=== PATIENT | female | born 2000 | race Caucasian/White ===

== ENCOUNTER 2023-12-14 20:02 | Emergency (ER) | payer OTHER, SELFPAY ==
[2023-12-14 20:34] VITALS: BP 145/81; PULSE 94; RESP 15; TEMP 36.6; O2SAT 97
[2023-12-14 21:18] LABS: Basophils Absolute Auto 0.1 K/mm3 (0.0-0.1); Basophils Percent Auto 0.3 % (0.2-1.2); Eosinophils Absolute Auto 0.3 K/mm3 (0-0.3); Eosinophils Percent Auto 2.3 % (0-4.4); Hematocrit 43.5 % (37.0-47.0); Hemoglobin 14.3 g/dL (12.0-15.0); Immature Granulocyte Absolute 0.08 K/mm3 (0.00-0.031); Immature Granulocyte Percent A 0.5 % (0-0.5); Lymphocytes Absolute Auto 4.23 K/mm3 (0.9-3.2); Lymphocytes Percent Auto 28.4 % (18.3-44.2); Mean Corpuscular HGB Conc 32.9 g/dl (32-36); Mean Corpuscular Hemoglobin 29.4 pg (26-34); Mean Corpuscular Volume 89.3 fl (80-100); Mean Platelet Volume 10.1 fl (7.4-10.4); Monocytes Absolute Auto 1.2 K/mm3 (0.1-0.6); Monocytes Percent Auto 8.1 % (2.6-8.5); Neutrophils Percent Auto 60.4 % (45.5-73.1); Platelet Count Result 354 k/mm3 (150-375); Red Blood Count 4.87 M/mm3 (4.2-5.4); Red Cell Distribution Width 13.2 % (11.5-14.5); White Blood Count 14.9 K/mm3 (4.5-10.0)
[2023-12-14 21:27] LABS: Alanine Aminotransferase 18 U/L (6-35); Albumin Level 4.5 g/dL (3.5-5.1); Alkaline Phosphatase 67 U/L (38-126); Anion Gap 10 mmol/L (8-16); Aspartate Amino Transferase 22 U/L (14-36); Bilirubin,Total 0.5 mg/dL (0.2-1.3); Blood Urea Nitrogen 7 mg/dL (7-17); Calcium 9.8 mg/dL (8.4-10.2); Carbon Dioxide 20 mmol/L (22-30); Chloride 109 mmol/L (98-107); Estimated CRCL calculation 146 ml/min; Estimated Glomerular Filt Rate > 60; Glucose 93 mg/dL (65-110); Potassium 3.4 mmol/L (3.4-5.0); Sodium 139 mmol/L (137-145)
[2023-12-15 00:35] VITALS: BP 115/71; PULSE 81; RESP 15; O2SAT 100
[2023-12-15] MEDS: SODIUM CHLORIDE 0.9% IV 1,000 ML 999 ML IV CONT (00:54)
[2023-12-15] MEDS: METOCLOPRAMIDE HCL INJ 10 MG/2 ML VIAL IV PUSH (00:55)
[2023-12-15] MEDS: diphenhydrAMINE HCl INJ 50 MG/ML VIAL IV PUSH (00:55)
--- NOTE | 2023-12-15 00:57 | ED.GENADULT ---
HPI - General Adult General Chief complaint: Headache Stated complaint: headache, dizzy, blurred vision. 8 weeks Time Seen by Provider: 12/15/23 00:22 History of Present Illness HPI narrative: Patient is a 23-year-old female who presents emergency department with chief complaint of headache dizziness blurred vision and had tingling on the tips of her fingers. Patient states around 230 this afternoon she had an episode of headache. Patient reports that her head has been aching reports that she had some blurry vision at that time and reports that tips of her fingers on both hands were tingly. The patient states she had no weakness in her arms or legs denies syncope reports that she felt somewhat lightheaded with this. The patient does try to drink water caffeine and did not have any improvement. The patient reports that she called her OB and they told her that she probably should be evaluated. Related Data Allergies Allergy/AdvReac Type Severity Reaction Status Date / Time amoxicillin Allergy Mild Hives Unverified 12/15/23 00:54 Review of Systems Review of Systems: A 10 system review of systems was completed on the patient and is negative except for what is stated in the HPI. Nursing and ancillary documentation was reviewed. Exam Narrative: GENERAL: Well-appearing, well-nourished, and in no acute distress. HEAD: Normocephalic, atraumatic. EYES: PERRLA and EOMI. ENT: Nares clear, no rhinorrhea or epistaxis. Mucous membranes moist. NECK: Supple. CHEST: Clear to auscultation. No respiratory distress. HEART: Regular rate and rhythm. No murmur heard. Normal peripheral pulses. ABDOMEN: Soft, nontender, nondistended, normal active bowel sounds. EXTREMITIES: Normal range of motion. No edema. SKIN: Warm, dry, no rash. NEURO: No focal deficits. Alert and oriented x3. PSYCH: Normal mood and affect. Course Vital Signs Vital signs: Vital Signs Temperature 36.6 C 12/14/23 20:34 Pulse Rate 94 12/14/23 20:34 Respiratory Rate 15 12/14/23 20:34 Blood Pressure 145/81 H 12/14/23 20:34 Pulse Oximetry 97 12/14/23 20:34 Temperature 36.6 C 12/14/23 20:34 Pulse Rate 94 12/14/23 20:34 Respiratory Rate 15 12/14/23 20:34 Blood Pressure 145/81 H 12/14/23 20:34 Pulse Oximetry 97 12/14/23 20:34 Medical Decision Making MDM Narrative Medical decision making narrative: Differential diagnosis includes migraine headache, viral syndrome, dehydration Laboratory studies were obtained the patient showed white count 14.9 electrolytes showed no acute abnormality urinalysis showed 2+ ketones COVID flu and RSV were negative The patient had no signs of meningitis Patient was treated with antiemetics fluids and Benadryl the patient is feeling much better at this time Patient be discharged home to follow-up with her OBGYN Vital Signs Vital Signs: Vital Signs Temperature 36.6 C 12/14/23 20:34 Pulse Rate 94 12/14/23 20:34 Respiratory Rate 15 12/14/23 20:34 Blood Pressure 145/81 H 12/14/23 20:34 Pulse Oximetry 97 12/14/23 20:34 Temperature 36.6 C 12/14/23 20:34 Pulse Rate 94 12/14/23 20:34 Respiratory Rate 15 12/14/23 20:34 Blood Pressure 145/81 H 12/14/23 20:34 Pulse Oximetry 97 12/14/23 20:34 Lab Data 12/14/23 21:05 12/14/23 21:05 Labs: Lab Results 12/14/23 12/15/23 12/15/23 Range/Units 21:05 00:59 01:00 WBC 14.9 H (4.5-10.0) K/mm3 RBC 4.87 (4.2-5.4) M/mm3 Hgb 14.3 (12.0-15.0) g/dL Hct 43.5 (37.0-47.0) % MCV 89.3 (80-100) fl MCH 29.4 (26-34) pg MCHC 32.9 (32-36) g/dl RDW 13.2 (11.5-14.5) % Plt Count 354 (150-375) k/mm3 MPV 10.1 (7.4-10.4) fl Immature Gran % (Auto) 0.5 (0-0.5) % Neut % (Auto) 60.4 (45.5-73.1) % Lymph % (Auto) 28.4 (18.3-44.2) % [place] % (Auto) 8.1 (2.6-8.5) % Eos % (Auto) 2.3 (0-4.4) % Baso % (Auto) 0.3 (0.2-1
[2023-12-15 01:10] LABS: Appearance Urine Clear (Clear); Bilirubin Urine Negative (Negative); Blood Urine Negative (Negative); Color Urine Yellow (Yellow); Glucose Urine UA Negative (Negative); Ketones Urine 2+ mg/dL (Negative); Leukocyte Esterase Ur Negative LEU/UL (Negative); Nitrate Urine Negative (Negative); Protein Urine Negative (Negative); Specific Grav Ur 1.024 (1.001-1.035); Urobilinogen Urine 0.2 mg/dL (<2.0)
[2023-12-15 01:18] LABS: Add Urine Microscopic? NO
[2023-12-15 01:45] LABS: Influenza A QL RT-PCR Negative (Negative); Influenza B QL RT-PCR Negative (Negative); RSV RNA, RT-PCR Negative (Negative); SARS-CoV-2 RNA PCR Negative (Negative)
[2023-12-15 02:52] VITALS: BP 124/79; PULSE 89; RESP 14; O2SAT 99
== END 2023-12-15 02:54 | disposition home or self-care (01) ==
PROVIDERS: Emergency Provider Emergency Medicine; PCP Family Medicine
DX: R51.9 Headache, unspecified (principal); Z20.822 Contact with and (suspected) exposure to COVID-19
CPT/HCPCS: 36415; 80053; 81025; 85025; 87637; 96361; 96374; 96375; 99284; J1200; J2765; J7030